=== PATIENT | male | born 1985 | race Two or more races ===

== ENCOUNTER 2016-12-29 19:40 | Emergency (ER) | payer OTHER ==
[~2016-12-29] VITALS: Ht 172.7 cm; Wt 90.2 kg
[~2016-12-29 19:40] MED LIST: CYCL-36 PO; IBUP-238 PO
[2016-12-29 19:47] VITALS: BP 132/82; PULSE 87; RESP 14; TEMP 98.3; O2SAT 96
[2016-12-29] MEDS ORDERED: SODIUM CHLOR 0.9% 1000 ML INJ 1,000 ML IV SCH (20:09)
[2016-12-29 20:10] VITALS: BP 125/70; PULSE 91; RESP 18; TEMP 98.4; O2SAT 100
[2016-12-29] MEDS ORDERED: MELO-1 PO (20:13)
[2016-12-29] MEDS ORDERED: SODIUM CHLORIDE 0.9% FLUSH 10 ML FLUSH IV FLUSH PRN (20:15)
[2016-12-29 20:28] LABS: AUTOMATED NEUTROPHIL # 5.7 TH/MM3 (1.8-7.7); BASOPHIL % 0.4 % (0.0-2.0); EOSINOPHIL # 0.1 TH/MM3 (0-0.4); EOSINOPHIL % 1.6 % (0.0-4.0); HEMATOCRIT 41.2 % (39.0-51.0); LYMPH % 9.2 % (9.0-44.0); LYMPHOCYTE # 0.7 TH/MM3 (1.0-4.8); MEAN CELL VOLUME 87.6 FL (80.0-100.0); MEAN CORPUSCULAR HEMOGLOBIN 30.4 PG (27.0-34.0); MEAN CORPUSCULAR HGB CONC 34.7 % (32.0-36.0); MONO % 13.5 % (0.0-8.0); NEUT % 75.3 % (16.0-70.0); PLATELET COUNT 137 TH/MM3 (150-450); RED BLOOD COUNT 4.71 MIL/MM3 (4.50-5.90); RED CELL DISTRIBUTION WIDTH 11.6 % (11.6-17.2); WHITE BLOOD COUNT 7.5 TH/MM3 (4.0-11.0)
--- NOTE | 2016-12-29 20:30 | PD ---
HPI Chief Complaint: GI Complaint Time Seen by Provider: 20:09 Travel History International Travel<30 days: Yes Contact w/Intl Traveler<30days: Yes Name of Country Traveled to: [place] Traveled to known affect area: No History of Present Illness HPI 31-year-old male presents to the emergency department for one day of generalized weakness, subjective fever, chills, bilateral lower abdominal pain and bloody mucoid stool 2. 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 Patient states two more of his colleagues had symptoms yesterday when they returned to [place]; he has not followed up with them. He has developed similar symptoms today. Patient denies any new or unusual foods since returning home. Family members to be the same foods and asymptomatic. Patient states while he was deployed and upon returning home yesterday was consuming seawater that had been purified as well as MRE's. Patient denies respiratory symptoms, no headache, no sinus pressure or drainage, no sore throat , no earache, no cough, no congestion, no shortness of breath, no chest pain, no generalized abdominal pain, no flank pain, no dysuria, frequency, or urgency , no joint pain or swelling or rash. Patient denies personal history of colitis or inflammatory bowel disease no history of Crohn's ulcer colitis. No abdominal surgeries. Patient takes no medications or prescription medications on a regular basis. Patient should drinks alcohol did have an alcoholic beverages this evening prior to coming to the hospital. Patient rates discomfort 7/10 in intensity. [facility] Past Medical History Narrative Medical Negative past medical history negative surgical history occasional alcohol use nursing notes reviewed Diminished Hearing: No Social History Alcohol Use: Yes (OCCASIONAL) Tobacco Use: No Substance Use: No Allergies-Medications (Allergen,Severity, Reaction): Coded Allergies: Penicillin (Verified Allergy, Unknown, " I DONT KNOW ", 12/29/16) Reported Meds & Prescriptions Reported Meds & Active Scripts Active Flagyl (Metronidazole) 500 Mg Tab 500 Mg PO BID 7 Days Reported Meloxicam 15 Mg Tab 15 Mg PO DAILY Review of Systems Except as stated in HPI: all other systems reviewed are Neg General / Constitutional: Positive: Fever (subjective), Chills HENT: No: Headaches, Sore Throat, Rhinorrhea, Congestion, Nosebleed, Neck Stiffness, Earache Cardiovascular: No: Chest Pain or Discomfort Respiratory: No: Cough, Shortness of Breath, Wheezing, Hemoptysis, Pleuritic Pain Gastrointestinal: Positive: Diarrhea (mucoid and bloody), Abdominal Pain, Hematochezia, No: Nausea, Vomiting, Loss of Appetite Genitourinary: No: Urgency, Frequency, Dysuria, Flank Pain Musculoskeletal: No: Myalgias, Arthralgias Skin: No Rash Neurologic: Positive: Weakness, No: Dizziness, Syncope, Focal Abnormalities, Coordination Problem Psychiatric: No: Anxiety Endocrine: No: Heat Intolerance Hematologic/Lymphatic: No: Easy Bruising Physical Exam Narrative GENERAL: Well-developed well-nourished male in no acute distress no respiratory distress [place]: GCS 15; triage vital signs in normal range SKIN: Warm and dry. No rash. HEAD: Normocephalic. EYES: No scleral icterus. No injection or drainage. ENT: Mucous membranes moist airway is patent no posterior pharyngeal erythema edema edema exudative change tympanic membranes no redness dullness loss of landmarks or perforation sinuses nontender to percussion NECK: Supple, trachea midline. No JVD or lymphadenopathy. No meningismus no nuchal rigidity. CARDIOVASCULAR: Regular rate and rhythm without murmurs, gallops, or rubs. RESPIRATORY: Breath sounds equal bilaterally. No accessory muscle use. GASTROINTESTINAL: Abdomen soft, bilateral lower quadrant tenderness to direct palpation without guarding or rebound, nondistended. Rectal exam: No external fissure or prolapsed hemorrhoid; normal sphincter tone; non-bloody mucus on exam glove no stool and rectal vault; prostate nontender non-boggy no nodule and sulcus is midline. MUSCULOSKELETAL: No cyanosis, or edema. BACK: Nontender without obvious deformity. No CVA tenderness. Data Data Last Documented VS Vital Signs Date Time Temp Pulse Resp B/P Pulse Ox O2 Delivery O2 Flow Rate FiO2 12/29/16 22:48 68 18 131/62 98 12/29/16 21:30 Room Air 12/29/16 20:10 98.4 Orders Complete Blood Count With Diff (12/29/16 20:09) Comprehensive Metabolic Panel (12/29/16 20:09) Lipase (12/29/16 20:09) Lactic Acid (12/29/16 20:09) Urinalysis - C+S If Indicated (12/29/16 20:09) Ct Abd/Pel W Iv Contrast(Rout) (12/29/16 20:09) Iv Access Insert/Monitor (12/29/16 20:09) Ecg Monitoring (12/29/16 20:09) Oximetry (12/29/16 20:09) Sodium Chlor 0.9% 1000 Ml Inj (Ns 1000 M (12/29/16 20:09) Sodium Chloride 0.9% Flush (Ns Flush) (12/29/16 20:15) Alcohol (Ethanol) (12/29/16 20:09) Magnesium (Mg) (12/29/16 20:09) Enteric Path (Stool) (12/29/16 20:09) Stool Ova And Parasite Screen (12/29/16 20:09) Iohexol 350 Inj (Omnipaque 350 Inj) (12/29/16 21:23) Labs Laboratory Tests Test 12/29/16 12/29/16 20:20 20:28 White Blood Count 7.5 TH/MM3 Red Blood Count 4.71 MIL/MM3 Hemoglobin 14.3 GM/DL Hematocrit 41.2 % Mean Corpuscular Volume 87.6 FL Mean Corpuscular Hemoglobin 30.4 PG Mean Corpuscular Hemoglobin 34.7 % Concent Red Cell Distribution Width 11.6 % Platelet Count 137 TH/MM3 Mean Platelet Volume 7.1 FL Neutrophils (%) (Auto) 75.3 % Lymphocytes (%) (Auto) 9.2 % Monocytes (%) (Auto) 13.5 % Eosinophils (%) (Auto) 1.6 % Basophils (%) (Auto) 0.4 % Neutrophils # (Auto) 5.7 TH/MM3 Lymphocytes # (Auto) 0.7 TH/MM3 Monocytes # (Auto) 1.0 TH/MM3 Eosinophils # (Auto) 0.1 TH/MM3 Basophils # (Auto) 0.0 TH/MM3 CBC Comment DIFF FINAL Differential Comment Sodium Level 139 MEQ/L Potassium Level 3.6 MEQ/L Chloride Level 102 MEQ/L Carbon Dioxide Level 29.3 MEQ/L Anion Gap 8 MEQ/L Blood Urea Nitrogen 17 MG/DL Creatinine 1.10 MG/DL Estimat Glomerular Filtration 78 ML/MIN Rate Random Glucose 93 MG/DL Lactic Acid Level 1.1 mmol/L Calcium Level 8.8 MG/DL Magnesium Level 2.0 MG/DL Total Bilirubin 0.3 MG/DL Aspartate Amino Transf 12 U/L (AST/SGOT) Alanine Aminotransferase 18 U/L (ALT/SGPT) Alkaline Phosphatase 68 U/L Total Protein 7.3 GM/DL Albumin 3.7 GM/DL Lipase 121 U/L Ethyl Alcohol Level LESS THAN 3 MG/DL Urine Color YELLOW Urine Turbidity CLEAR Urine pH 6.0 Urine Specific [place] 1.023 Urine Protein NEG mg/dL Urine Glucose (UA) NEG mg/dL Urine Ketones NEG mg/dL Urine Occult Blood SMALL Urine Nitrite NEG Urine Bilirubin NEG Urine Leukocyte Esterase NEG Urine Squamous Epithelial 0-5 /hpf Cells Urine Mucus FEW /lpf Microscopic Urinalysis Comment CULT NOT INDICATED MDM Medical Decision Making Medical Screen Exam Complete: Yes Emergency Medical Condition: Yes Medical Record Reviewed: Yes Interpretation(s) UA: grossly wnl alcohol: less than 3, not elevated lactic acid: 1.1 not elevated Last Impressions Abdomen/Pelvis CT 12/29/162008 Signed Impressions: Service Date/Time: Thursday, December 29, 2016 21:02 - CONCLUSION: CT of the abdomen and pelvis is within normal limits. Satish Alvarado MD CBC & BMP Diagram 12/29/16 20:20 Vital Signs Date Time Temp Pulse Resp B/P Pulse Ox O2 Delivery O2 Flow Rate FiO2 12/29/16 21:30 73 17 116/65 98 Room Air 12/29/16 20:10 98.4 91 18 125/70 100 Room Air 12/29/16 19:47 98.3 87 14 132/82 96 Differential Diagnosis Abdominal pain, colitis, appendicitis, atypical diverticulitis, UTI, dehydration , gastroenteritis Narrative Course IV access obtained; specimens collected and sent for resulting; patient administered normal saline bolus Patient resting comfortably waiting lab results Patient unable to produce stool specimen It is now 10:05 PM patient is feeling markedly improved after IV fluid hydration states discomfort is 2-3/10 in intensity. Patient denies any need for pain medication. Patient remains afebrile vital signs are normal range. Patient stable for outpatient management encouraged to follow clear liquid diet for next 12-24 hours and avoid any alcoholic beverage consumption. Patient is encouraged follow-up this physician at the [place] on [address]. Patient is encouraged to return to the emergency department for any concerns or change in condition. Patient is encouraged to discontinue any NSAID use 72 hours. Patient is given prescription for Flagyl twice a day 7 days [facility] Point of Care Internal Pos. & Neg. Controls: Passed Fecal Specimen Occult Blood: Positive Diagnosis Primary Impression: Diarrhea in adult patient Additional Impressions: Colitis Thrombocytopenia Referrals: [place] [facility] [place] 3 days Patient Instructions: General Instructions Additional Instructions: Follow clear liquid diet for next 12-24 hours advance as tolerated to bland/ Anny diet then regular diet avoiding fried and fatty foods Monitor temperature every 4 hours with thermometer take as needed acetaminophen/ Tylenol every 4 hours for fever 100.4F or greater Defer use of meloxicam x 72 hours Take Flagyl as prescribed; do NOT drink alcohol while taking this antibiotic Return to the emergency department for pain fever vomiting recurrent rectal bleeding or any concerns Follow-up with [place] [facility] on Sunday call office to schedule appointment Med/Other Pt SpecificInfo: Prescription(s) given Scripts Metronidazole (Flagyl)500 Mg Ggx270 Mg PO BID 7 Days Ref 0 Prov:Alannah Benjamin MD 12/29/16 Disposition: DISCHARGE HOME Condition: Stable Alannah Benjamin MD December 29, 2016 20:30
[2016-12-29 20:34] LABS: CHLORIDE 102 MEQ/L (98-107); POTASSIUM 3.6 MEQ/L (3.5-5.1); SODIUM (NA) 139 MEQ/L (136-145)
[2016-12-29 20:36] LABS: BLOOD, URINE SMALL (NEG); GLUCOSE,URINE NEG (NEG); KETONE, URINE NEG (NEG); NITRITE,URINE NEG (NEG)
[2016-12-29 20:38] LABS: ANION GAP 8 MEQ/L (5-15); BICARBONATE 29.3 MEQ/L (21.0-32.0)
[2016-12-29 20:39] LABS: BLOOD UREA NITROGEN 17 MG/DL (7-18)
[2016-12-29 20:39] LABS: URINE COLOR YELLOW (YELLW/STRAW)
[2016-12-29 20:41] LABS: COMMENT (UR) CULT NOT INDICATED; CULTURE IF INDICATED CULT NOT INDICATED; MUCUS URINE FEW /lpf (OCC); SQUAMOUS EPITHELIAL CELL URINE 0-5 /hpf (0-5)
[2016-12-29 20:41] LABS: ALT (GPT) 18 U/L (12-78); AST (GOT) 12 U/L (15-37); GLOMERULAR FILTRATION RATE 78 ML/MIN (>89)
[2016-12-29 20:43] LABS: TOTAL BILIRUBIN ADULT 0.3 MG/DL (0.2-1.0)
[2016-12-29 20:44] LABS: ALKALINE PHOSPHATASE 68 U/L (45-117)
[2016-12-29 21:00] LABS: HEMO FLAGS DIFF FINAL
[2016-12-29] MEDS ORDERED: IOHEXOL 350 MG/ML 10 ML VIAL (for RAD DIAG) IV ONE (21:23)
[2016-12-29 21:30] VITALS: BP 116/65; PULSE 73; RESP 17; O2SAT 98
--- NOTE | 2016-12-29 21:31 | RADHPO ---
EXAM DATE/TIME: 12/29/2016 21:02 [facility] COMPARISON: No previous studies available for comparison. INDICATIONS : Bilateral lower quadrant pain with bloody stool. IV CONTRAST: 96 cc Omnipaque 350 (iohexol) IV ORAL CONTRAST: No oral contrast ingested. RADIATION DOSE: 12 CTDIvol (mGy) MEDICAL HISTORY : None SURGICAL HISTORY : Vascectomy. ENCOUNTER: Initial ACUITY: 1 day PAIN SCALE: 7/10 LOCATION: Bilateral lower quadrant TECHNIQUE: Volumetric scanning of the abdomen and pelvis was performed. Using automated exposure control and ad justment of the mA and/or kV according to patient size, radiation dose was kept as low as reasonably achievable to obtain optimal diagnostic quality images. FINDINGS: LOWER LUNGS: The visualized lower lungs are clear. LIVER: Homogeneous density without lesion. There is no dilation of the biliary tree. No calcified gallston es. SPLEEN: Normal size without lesion. PANCREAS: Within normal limits. KIDNEYS: Normal in size and shape. There is no mass, stone or hydronephrosis. ADRENAL GLANDS: Within normal limits. VASCULAR: There is no aortic aneurysm. BOWEL/MESENTERY: The stomach, small bowel, and colon demonstrate no acute abnormality. There is no free intraperitone al air or fluid. The appendix is well-visualized, normal. ABDOMINAL WALL: Within normal limits. RETROPERITONEUM: There is no lymphadenopathy. BLADDER: No wall thickening or mass. REPRODUCTIVE: Within normal limits. INGUINAL: There is no lymphadenopathy or hernia. MUSCULOSKELETAL: No acute bony abnormality demonstrated. CONCLUSION: CT of the abdomen and pelvis is within normal limits. Staish Alvarado MD on December 29, 2016 at 21:27 Board Certified Radiologist. This report was verified electronically.
[2016-12-29] MEDS ORDERED: METR-1 PO (22:02)
[2016-12-29 22:48] VITALS: BP 131/62
== END 2016-12-29 23:00 | disposition home or self-care (01) ==
LOC: PHED 19:40
DX: R19.7 Diarrhea, unspecified (principal); K52.9 Noninfective gastroenteritis and colitis, unspecified; D69.6 Thrombocytopenia, unspecified; R53.1 Weakness
CPT/HCPCS: 74177; 80053; 80307; 81001; 83605; 83690; 83735; 85025; 96360; 96361; 99285; J7030; Q9967